=== PATIENT | male | born 1975 | race Caucasian/White ===

== ENCOUNTER 2019-01-20 13:52 | Inpatient (IN) ==
[2019-01-20] MEDS ORDERED: *HR* LORazepam 2 MG/ML VIAL IVP ONE (14:01)
[2019-01-20] MEDS ORDERED: Ondansetron ODT 4 MG TAB.RAPDIS SL ONE (14:03)
[2019-01-20] MEDS ORDERED: Acetaminophen 325 MG TABLET PO ONE (14:03)
--- NOTE | 2019-01-20 14:04 | Emergency Department Note ---
Disposition Clinical Impression: Methamphetamine abuse Suicide gesture Qualifiers: Encounter type: initial encounter Qualified Code(s): X83.8XXA - Intentional self-harm by other specified means, initial encounter Disposition: Admitted As Inpatient Forms: ED Satisfaction Letter Time of Disposition: 18:27 Psych HPI - General Chief Complaint: ED Psychiatric Symptoms Stated Complaint: SI Time Seen by Provider: 01/20/19 13:59 Source: patient, EMS Mode of arrival: EMS Limitations: no limitations Nursing Notes Reviewed: Yes Vital Signs Reviewed: Yes - History of Present Illness HPI Narrative: 43 yo male transferred via EMS from [facility] for evaluation by 1A for suicidal ideation. For full history and physical referred to the note from previous facility. In short patient used IV methamphetamine for the first time last night in an attempted suicide and experienced extreme chest pain and anxie ty. He was transported to [facility] this morning when he was found on the ground by a resident of his facility and EMS was called. All psych screening labs have been completed at the outside hospital. Patient now is complaining of some chest and abdominal soreness that is left over from his pain yesterday. He states he has not taken any of his medications this morning for his blood pressure. He also admits to feeling nauseous and having a headache. Patient admits to having some auditory and visual hallucinations last night after taking the methamphetamine but currently denies wanting to harm himself or anyone else. - Related Data Home Medications Medication Instructions Recorded Confirmed Amlodipine Besylate 10 mg PO DAILY 08/20/17 01/20/19 Esomeprazole Magnesium [Nexium] 40 mg PO DAILY 08/20/17 01/20/19 Lisinopril [Zestril] 10 mg PO DAILY 08/20/17 01/20/19 Sucralfate [Carafate] 1 gm PO TIDAC 08/20/17 01/20/19 Venlafaxine XR (24 HR) [Effexor XR] 150 mg PO DAILY 08/20/17 01/20/19 cloNIDine HCl [CloNIDine HCl] 0.3 mg PO DAILY 08/20/17 01/20/19 Famotidine [Pepcid] 40 mg PO HS 01/08/18 01/20/19 Allergies Allergy/AdvReac Type Severity Reaction Status Date / Time adhesive tape Allergy Rash Verified 11/15/18 10:04 codeine Allergy Anaphylaxis Verified 11/15/18 10:04 ondansetron [From Zofran] AdvReac Mild See Verified 11/15/18 10:04 Comments NSAIDS (Non-Steroidal AdvReac Gastrointestinal Verified 11/15/18 10:04 Anti-Inflamma Upset All systems ED: reviewed and negative except as stated. Review of Systems: As Per HPI Constitutional: Denies: fever Cardiovascular: Reports: chest pain. Denies: dyspnea on exertion Respiratory: Denies: cough, wheezes Gastrointestinal: Reports: abdominal pain, nausea. Denies: vomiting, diarrhea Musculoskeletal: Denies: back pain, neck pain Integumentary: Denies: rash Past Medical History - Past Medical History Attestation: Yes The following information was validated with the patient. Source: patient Medical history: Reports: cancer, GERD, hyperlipidemia, hypertension, other Psychiatric history: Reports: bipolar, depression - Social History Smoking Status: Current every day smoker Smokeless Tobacco Status: No Alcohol use: Reports: none Drug use: Reports: methamphetamine Physical Exam - General Limitations: no limitations General appearance: alert, in no apparent distress - Head Head exam: atraumatic, normocephalic - Eye Eye exam: Present: normal appearance, PERRL, EOMI - ENT ENT exam: normal exam - Neck Neck exam: Present: normal inspection. Absent: tenderness - Chest Chest inspection: Present: tenderness. Absent: rash - Respiratory Respiratory exam: Present: normal lung sounds bilaterally. Absent: wheezes - Cardiovascular Cardiovascular exam: Present: regular rate, normal rhythm - Abdominal Exam Abdominal exam: Present: soft, tenderness. Absent: distention, guarding, rebound, rigidity Abdominal tenderness: Present: diffuse, mild - Extremities Exam Extremities exam: Present: normal inspection. Absent: tenderness, pedal edema - Neurological Exam Neurological exam: Present: alert, oriented X3 - Psychiatric Psychiatric exam: Present: normal affect, normal mood - Skin Skin exam: Present: warm, dry, intact Course Vital Signs Temperature 97.9 F 01/20/19 13:53 Pulse Rate 91 01/20/19 13:53 Respiratory Rate 18 01/20/19 13:53 Blood Pressure 171/117 01/20/19 13:53 O2 Sat by Pulse Oximetry 99 01/20/19 13:53 Temperature 97.9 F 01/20/19 13:53 Pulse Rate 91 01/20/19 13:53 Respiratory Rate 18 01/20/19 13:53 Blood Pressure 153/103 01/20/19 17:48 O2 Sat by Pulse Oximetry 99 01/20/19 13:53 Oxygen Delivery Oxygen Delivery Room Air Psych - MDM Narrative Medical decision making narrative: Patient has been transferred here for further evaluation of his suicidal ideation. All labs are given drawn and 1 A will be called to bedside for further evaluation. The patient does still have elevated blood pressure 171/117, likely secondary to his methamphetamine use and lack of taking his normal blood pressure medications. Before the IV is removed we will administer a second dose of Ativan. Patient is also complaining of a headache and nausea and he will be given Tylenol and sublingual Zofran. 1600 - patient has been accepted for admission by 1A pending blood pressure management. Patient will be given his at home medications and his blood pressure will be rechecked half an hour afterwards. 1830 - patient's blood pressure has responded to the medications. Spoke with 1A who will take the patient for admission. Psychiatric Medical Clearance - Medical Clearance Checklist Medical History: No Social History Section defined Current Vitals: Last Vital Signs Temp 97.9 F 01/20/19 13:53 Pulse 91 01/20/19 13:53 Resp 18 01/20/19 13:53 BP 153/103 01/20/19 17:48 Pulse Ox 99 01/20/19 13:53 Statement of Medical Clearance: I have evaluated the patient, reviewed diagnostic information, and certify that the patient's medical condition is sufficiently stable that transfer to the psychiatric unit does not pose a significant risk of deterioration.
--- NOTE | 2019-01-20 14:12 | Emergency Department Note ---
Disposition Clinical Impression: Methamphetamine abuse Suicide gesture Qualifiers: Encounter type: initial encounter Qualified Code(s): X83.8XXA - Intentional self-harm by other specified means, initial encounter Disposition: Still a Patient Forms: ED Satisfaction Letter Time of Disposition: 14:11 General Adult HPI - General Chief complaint: ED Psychiatric Symptoms Stated complaint: SI Time Seen by Provider: 01/20/19 13:59 Source: patient, EMS Mode of arrival: EMS Limitations: no limitations Nursing Notes Reviewed: Yes Vital Signs Reviewed: Yes - History of Present Illness HPI Narrative: Attestation note: Patient was seen with the emergency medicine resident/nurse practition er/physician ophthalmic medical assistant/transitional resident/medical student: Dr. TRISH SCHWARZ. I was present for the significant portions of the performance and interpretation of procedures and EKGs. I have personally performed a face to face evaluation on this patient. I have reviewed and agree with history and physical examination patient management and disposition 43-year-old male history of hypertension transferred from [facility] for suicidal ideations. Patient apparently tried to commit suicide using "2.9 g" of methamphetamine intravenously. Patient said he never injected meth before patient was seen and evaluated managed and transferred from [facility] for suicidal ideations he had a negative chest CT negative EKG labs within normal limits urine tox screen positive for amphetamine negative alcohol patient transferred in stable condition patient is slightly hypertensive here at about 179 but he did not take any of his antihypertensive medications she is little anxious he has get 1 mg of IV Ativan we will can pull the IV he will then be consult on by mental health services. Disposition pending. Patient stable Pain Scale: 0 - Related Data Home Medications Medication Instructions Recorded Confirmed Amlodipine Besylate 10 mg PO DAILY 08/20/17 01/20/19 Esomeprazole Magnesium [Nexium] 40 mg PO DAILY 08/20/17 01/20/19 Lisinopril [Zestril] 10 mg PO DAILY 08/20/17 01/20/19 Sucralfate [Carafate] 1 gm PO TIDAC 08/20/17 01/20/19 Venlafaxine XR (24 HR) [Effexor XR] 150 mg PO DAILY 08/20/17 01/20/19 cloNIDine HCl [CloNIDine HCl] 0.3 mg PO DAILY 08/20/17 01/20/19 Famotidine [Pepcid] 40 mg PO HS 01/08/18 01/20/19 Allergies Allergy/AdvReac Type Severity Reaction Status Date / Time adhesive tape Allergy Rash Verified 11/15/18 10:04 codeine Allergy Anaphylaxis Verified 11/15/18 10:04 ondansetron [From Zofran] AdvReac Mild See Verified 11/15/18 10:04 Comments NSAIDS (Non-Steroidal AdvReac Gastrointestinal Verified 11/15/18 10:04 Anti-Inflamma Upset Constitutional: Denies: fever Cardiovascular: Reports: chest pain. Denies: dyspnea on exertion Respiratory: Denies: cough, wheezes Gastrointestinal: Reports: abdominal pain, nausea. Denies: vomiting, diarrhea Musculoskeletal: Denies: back pain, neck pain Integumentary: Denies: rash Past Medical History - Past Medical History Medical history: Reports: cancer, GERD, hyperlipidemia, hypertension, other Psychiatric history: Reports: bipolar, depression - Social History Smoking Status: Current every day smoker Smokeless Tobacco Status: No Alcohol use: Reports: none Drug use: Reports: methamphetamine Physical Exam - General Limitations: no limitations General appearance: alert, in no apparent distress Course Vital Signs Temperature 97.9 F 01/20/19 13:53 Pulse Rate 91 01/20/19 13:53 Respiratory Rate 18 01/20/19 13:53 Blood Pressure 171/117 01/20/19 13:53 O2 Sat by Pulse Oximetry 99 01/20/19 13:53 Temperature 97.9 F 01/20/19 13:53 Pulse Rate 91 01/20/19 13:53 Respiratory Rate 18 01/20/19 13:53 Blood Pressure 171/117 01/20/19 13:53 O2 Sat by Pulse Oximetry 99 01/20/19 13:53 Oxygen Delivery Oxygen Delivery Room Air
[2019-01-20] MEDS ORDERED: cloNIDine HCl 0.1 MG TABLET PO STA (16:12)
[2019-01-20] MEDS ORDERED: amLODIPine 5 MG TABLET PO STA (16:12)
[2019-01-20] MEDS ORDERED: *HR* LORazepam 1 MG TABLET PO ONE (19:11)
[2019-01-20] MEDS ORDERED: Mag Hydrox/Al Hydrox/Simeth 30 ML UDC PO PRN (19:28)
[2019-01-20] MEDS ORDERED: *HR* LORazepam 2 MG/ML VIAL IM PRN (19:28)
[2019-01-20] MEDS ORDERED: MOM Conc 10 ML UD.LIQ PO PRN (19:28)
[2019-01-20] MEDS ORDERED: Acetaminophen 325 MG TABLET PO PRN (19:28)
[2019-01-20] MEDS ORDERED: Haloperidol Lactate 5 MG/ML VIAL IM PRN (19:28)
[2019-01-20] MEDS ORDERED: *HR* LORazepam 1 MG TABLET PO PRN (19:28)
[2019-01-20] MEDS ORDERED: hydrOXYzine pamoate 25 MG CAPSULE PO PRN (19:28)
[2019-01-20] MEDS ORDERED: traZODone 50 MG TABLET PO PRN (19:28)
[2019-01-20] MEDS ORDERED: *HR* OxyCODONE/APAP 10/325 TABLET PO STA (19:56)
[2019-01-20] MEDS ORDERED: Famotidine 20 MG TABLET PO SCH (21:00)
[2019-01-20] MEDS: cloNIDine HCl 0.1 MG TABLET PO SCH (21:22)
[2019-01-20] MEDS ORDERED: Melatonin 3 MG TABLET PO PRN (21:44)
[2019-01-20] MEDS: Sucralfate 1 GM TABLET PO SCH (22:19)
[2019-01-20] MEDS: Famotidine 20 MG TABLET PO SCH (22:19)
[2019-01-21] MEDS ORDERED: Sucralfate 1 GM TABLET PO SCH (07:30)
--- NOTE | 2019-01-21 08:55 | Psychiatry History & Physical ---
Date of Encounter: 01/21/19 Time of Encounter: 07:45 History of Present Illness Patient Stated Chief Complaint: "I tried to kill myself" Medicare Admission Attestation: For traditional Medicare patients the provided hospital inpatient services are reasonable and necessary and in the case of services not specified as inpatient-only under 42 CFR 419.22 (n), that they are appropriately provided as inpatient services in accordance 42 CFR 412.3. For Critical Access Hospital the patient may reasonably be expected to be discharged or transferred to a hospital within 96 hours after admission to the Critical Access Hospital. Admitted From: Emergency Dept Plans for Post Hospital Care: Home History of Present Illness: Mr. Genao is a 43 year old male who was transferred via EMS from [facility] for evaluation by 1A for suicidal ideation. Fpatient used IV methamphetamine for the first time last night in an attempted suicide and experienced extreme chest pain and anxiety. He was transported to [facility] this morning when he was found on the ground by a resident of his facility and EMS was called. He reports stressors including having to live the past month in the homeless retirement, a recent diagnosis of colon cancer, the of his mother as well as just generally feeling overwhelmed by life. He reports sad mood, decreased interest, feelings of guilt and worthlessness, low energy, decreased ability to sleep. He reports ongoing suicidal ideations with a plan to overdose. He denies past manic symptoms. He reports some auditory hallucinations after he took the methamphetamines but otherwise said this is not an issue. Last night he got into a verbal altercation with an aggressive peer on the unit. He received emergency medications to help him calm down. He then made quite a mess in his room and the adjoining room and bathroom. He did end up in the quiet room Past Med Surg Social Fam HX - Past Medical History Medical history: cancer, GERD, hyperlipidemia, hypertension, other - Past Psychiatric History Psychiatric history: Reports: depression, previous psychiatric hospitalization. Denies: prior suicide attempt Past psychiatric history details: Patient reports he has been on Effexor for the past year. He said they were talking about raising up with this did not get done before coming in. He sees his primary care physician Dr. Dorantes for medication management. He is not linked with outpatient services. He was hospitalized once psychiatrically many years ago at [facility]. He has no prior suicide attempts. - Social History Smoking Status: Current every day smoker Smokeless Tobacco Status: No Alcohol use: none Drug use: none, methamphetamine Additional substance use detail: He says this is a new substance of abuse. He reports he used to use alcohol but stopped this about 10 years ago. He denies other drugs of abuse. Occupational status: unemployed Current living situation: Home Activity Level: Independent ambulation Recent Out of Country Travel Within the Last 8 Weeks: No Exposure or Possible Exposure to Illness During Travel: No Additional social history: He lost his housing and was homeless for about a month but recently was able to save up enough to get an apartment. Medications & Allergies Sucralfate [Carafate] 1 gm PO QID 08/20/17 [History] Venlafaxine XR (24 HR) [Effexor XR] 150 mg PO DAILY 08/20/17 [History] Amlodipine Besylate 10 mg PO DAILY 01/20/19 [History] Lisinopril [Zestril] 40 mg PO DAILY 01/20/19 [History] Ranitidine HCl [Acid Copper Plate Lithographer] 150 mg PO BID 01/20/19 [History] cloNIDine HCl [Clonidine HCl] 0.3 mg PO BID 01/20/19 [History] Allergy/AdvReac Type Severity Reaction Status Date / Time adhesive tape Allergy Rash Verified 11/15/18 10:04 codeine Allergy Anaphylaxis Verified 11/15/18 10:04 ondansetron [From Zofran] AdvReac Mild See Verified 11/15/18 10:04 Comments NSAIDS (Non-Steroidal AdvReac Gastrointestinal Verified 11/15/18 10:04 Anti-Inflamma Upset Review of Systems Constitutional: Reports: weakness Eyes: Denies: eye pain Ears, Nose, Throat: Denies: ear pain Cardiovascular: Denies: chest pain Respiratory: Denies: cough Gastrointestinal: Denies: abdominal pain Genitourinary male: Denies: urgency Musculoskeletal: Reports: back pain, joint pain Integumentary: Denies: rash Neurological: Reports: weakness, abnormal gait (Unsteady on his feet due to medications last night) Psychiatric: Reports: depression, abnormal sleep pattern, suicidal ideation, anhedonia, hopelessness. Denies: homicidal ideation Endocrine: Reports: fatigue Hematologic/Lymphatic: Denies: easy bleeding Allergic/Immunologic: Denies: facial swelling Exam - HEENT Head exam IM: Present: atraumatic Eye exam IM: Present: EOMI ENT exam IM: Present: mucous membranes moist - Neurological Neurological exam: Present: CN II-XII intact - Respiratory Respiratory exam IM: Absent: respiratory distress (Grossly) - GI/Abdominal GI/Abdominal exam IM: Present: no peritoneal signs - Extremities Extremities exam IM: Present: full ROM - Skin Skin exam IM: Absent: cyanosis - Constitutional Vitals: Temp Pulse Resp BP Pulse Ox 97.8 F 92 20 125/86 97 01/20/19 21:00 01/20/19 21:00 01/20/19 21:00 01/20/19 21:00 01/20/19 21:00 General appearance: age & developmentally appropriate, disheveled - Musculoskeletal Gait: slow, unsteady Station: relaxed Strength & Tone: mild weakness - Psychiatric Patient Orientation: Yes Person, Yes Time, Yes Place, Yes Circumstance Level of alertness: Alert Behavior: cooperative Psychomotor activity: Slowed Eye Contact: Minimal Contact Mood Description: Depressed Patient description of mood: Down Affect description: dysphoric Speech Volume: Soft/Quiet Speech pattern: normal rate, normal rhythm, normal tone, fluent, spontaneous Language & Vocabulary: consistent with education Thought Process: Linear, Goal Oriented Thought Content: Yes Suicidal ideation, No Homicidal ideation Perceptual Disturbances: No Auditory hallucinations, No Visual hallucinations Attention Span Ability: Capable of Sustained Attention, Unable to Sustain Attent ion Memory Description: Immediate Intact, Recent Impaired, Remote Intact Patient Reliability: Questionable Historian Fund of knowledge: Yes average Intelligence Estimate: Average Judgment: Limited Insight: Minimal Assessment and Plan (1) Major depressive disorder, recurrent severe without psychotic features Current visit: Yes Status: Acute Plan: Admit inpatient for safety and stabilization, Close observation, Suicide Precautions per unit protocol, Encourage participation in unit milieu, Group Therapy, Monitor sleep, Monitor appetite Additional Plan: Increase Effexor XR to 187.5 mg by mouth daily for further treatment of depression. Encourage group attendance. Reviewed Interval hx Review any current labs Pt had an opportunity to ask questions and discuss current treatment plan. Supportive therapy was provided Pt encouraged to consider group or individual therapy Pt was in agreement with treatment plan. Pt was educated on the risks benefits and side effects of current medications and alternatives as well as the risks and benefits of no medication. AIMS = 0 Risks, benefits, side effects, alternatives discussed w/pt: Yes Patient agreeable to treatment: Yes Plans for Post Hospital Care: Home Estimated Length of Stay (Days): 5
[2019-01-21] MEDS ORDERED: NON-FORMULARY MEDICATION 1 EACH EACH (Amlodipine Besylate 10 MG) PO SCH (09:00)
[2019-01-21] MEDS ORDERED: Venlafaxine XR (24 HR) 150 MG CAP.ER.24H PO SCH ×2 (09:00→21:00)
[2019-01-21] MEDS ORDERED: cloNIDine HCl 0.1 MG TABLET PO SCH (09:00)
[2019-01-21] MEDS: Famotidine 20 MG TABLET PO SCH (09:18)
[2019-01-21] MEDS: amLODIPine 5 MG TABLET PO SCH (09:18)
[2019-01-21] MEDS: Sucralfate 1 GM TABLET PO SCH ×3 (09:19→17:45)
[2019-01-21] MEDS: cloNIDine HCl 0.1 MG TABLET PO SCH (09:19)
[2019-01-21] MEDS: Nicotine 21 MG PATCH.TD24 TD SCH (09:20)
[2019-01-21] MEDS: Lisinopril 20 MG TABLET PO SCH (09:20)
[2019-01-21] MEDS ORDERED: Venlafaxine XR (24 HR) 37.5 MG CAP.ER.24H PO SCH (21:00)
[2019-01-22] MEDS: cloNIDine HCl 0.1 MG TABLET PO SCH ×2 (00:32→08:50)
[2019-01-22] MEDS: Sucralfate 1 GM TABLET PO SCH ×3 (00:32→14:23)
[2019-01-22] MEDS: Famotidine 20 MG TABLET PO SCH ×2 (00:33→08:49)
[2019-01-22] MEDS: Nicotine 21 MG PATCH.TD24 TD SCH (08:47)
[2019-01-22] MEDS: Lisinopril 20 MG TABLET PO SCH (08:48)
[2019-01-22] MEDS: amLODIPine 5 MG TABLET PO SCH (08:49)
--- NOTE | 2019-01-22 12:08 | Discharge Summary ---
Date of Encounter: 01/22/19 Time of Encounter: 12:08 Diagnosis - Discharge Diagnosis (1) Major depressive disorder, recurrent severe without psychotic features Status: Acute Medications - Discharge Medications Prescriptions: cloNIDine HCl [CloNIDine HCl] 0.3 mg PO BID #180 tablet hydrOXYzine pamoate [HydrOXYzine Pamoate] 25 mg PO TID PRN #90 capsule PRN Reason: Anxiety Melatonin 3 mg PO HS PRN #30 tablet PRN Reason: Insomnia Sucralfate [Carafate] 1 gm PO QID 08/20/17 [History] Venlafaxine XR (24 HR) [Effexor Xr] 150 mg PO DAILY 08/20/17 [History] Amlodipine Besylate 10 mg PO DAILY 01/20/19 [History] Lisinopril [Zestril] 40 mg PO DAILY 01/20/19 [History] Ranitidine HCl [Acid Teacher Aide] 150 mg PO BID 01/20/19 [History] Melatonin 3 mg PO HS PRN #30 tablet 01/22/19 [Rx] Venlafaxine XR (24 HR) [Effexor Xr] 37.5 mg PO HS #0 cap.er.24h 01/22/19 [Rx] cloNIDine HCl [CloNIDine HCl] 0.3 mg PO BID #180 tablet 01/22/19 [Rx] hydrOXYzine pamoate [HydrOXYzine Pamoate] 25 mg PO TID PRN #90 capsule 01/22/19 [Rx] Allergy/AdvReac Type Severity Reaction Status Date / Time adhesive tape Allergy Rash Verified 11/15/18 10:04 codeine Allergy Anaphylaxis Verified 11/15/18 10:04 ondansetron [From Zofran] AdvReac Mild See Verified 11/15/18 10:04 Comments NSAIDS (Non-Steroidal AdvReac Gastrointestinal Verified 11/15/18 10:04 Anti-Inflamma Upset Provider Date of admission: 01/20/19 18:54 Primary care physician: PCP NONE Discharging clinician: Minerva Liz Psychiatry Exam - Constitutional Vitals: Temp Pulse Resp BP Pulse Ox 97.8 F 71 18 121/82 97 01/21/19 09:00 01/21/19 09:00 01/21/19 09:00 01/21/19 09:00 01/21/19 09:00 General appearance: age & developmentally appropriate, well-groomed, well- nourished - Musculoskeletal Gait: normal Station: relaxed Strength & Tone: normal for patient - Psychiatric Patient Orientation: Yes Person, Yes Time, Yes Place Level of alertness: Alert Behavior: calm, cooperative Psychomotor activity: Normal Eye Contact: Maintains Eye Contact Mood Description: Depressed, Anxious Affect description: congruent with mood Speech Volume: Normal Speech pattern: normal rate, normal rhythm, normal tone, fluent, spontaneous Language & Vocabulary: consistent with education Thought Process: Linear, Goal Oriented Thought Content: No Suicidal ideation, No Homicidal ideation, No Overt delusions Perceptual Disturbances: No Auditory hallucinations, No Visual hallucinations Attention Span Ability: Capable of Focused Attention Memory Description: Grossly Intact Patient Reliability: Reliable Historian Fund of knowledge: Yes abstraction ability, Yes aware of current events Intelligence Estimate: Average Judgment: Fair Insight: Partial Hospital Course Hospital course: Mr. Genao is a 43 year old male who was admitted following a meth overdose. Today client reports he feels "awesome." Does not remember much from past few days. States he became overwhelmed by multiple life stressors including of mother, ex- being in hospital, facing eviction, and being diagnosed with colon cancer. Client has a history of AOD use but had been sober for an extended period of time. Decided he had had enough and went out and purchased 3g of meth. Injected all of it. Had never done meth before. Does not remember much but remembers being "terrified." Tore his room apart on the unit. Client does not remember doing this and very apologetic today. Asking if he owes money to repair room. Denies SI today. States he knows he needs help and willing to follow up with [facility]. Currently taking Effexor from PCP. Finds this medication helpful. Just increased dose for first time today. Also given Vistaril and Melatonin with positive results. Interested in counseling. Seems genuine about following up and getting help. Denies any further SI, intent or plan. No ongoing signs of psychosis. Wants to go home and seems stable to leave with outpatient follow-up in place. Total time spent with client greater than 30 minutes. - Time Spent with Patient Total time spent providing and/or coordinating discharge services: Assessment and Plan - Patient/Caregiver Discharge Instructions Activity: resume usual activities as tolerated Diet: regular diet - Follow up [facility] Jaison Moreira, DRUG DEPARTMENT WORKER [Advanced Practice Nurse] - Functional capacity at discharge: independent ambulation Overall status at discharge: Stable Disposition: Home, Self-Care Quality - Multiple Antipsychotics Patient discharged on 2 or more antipsychotic medications: No Procedures - Procedures Procedures: Medication Management, Crisis Stabilization, Supportive Therapy, Group Therapy
[2019-01-22 14:26] VITALS: BP 133/89
== END 2019-01-22 15:00 | disposition home or self-care (01) | DRG 817 ==
LOC: EMEROOARM 13:52 → 1ANU 18:54
PROVIDERS: ADMIT Psychiatry & Neurology Psychiatry; ATTEND Psychiatry & Neurology Psychiatry